=== PATIENT | male | born 1990 | race Caucasian/White ===

== ENCOUNTER 2019-07-31 01:04 | Emergency (ER) | payer SELFPAY ==
[~2019-07-31] VITALS: Ht 182.9 cm; Wt 100.7 kg
[2019-07-31 01:08] VITALS: BP 146/94; Ht 182.9 cm; Wt 100.7 kg
== END 2019-07-31 01:32 | disposition home or self-care (01) ==
LOC: ED 01:04
DX: R20.2 Paresthesia of skin (principal); R53.1 Weakness
CPT/HCPCS: 82962